=== PATIENT | female | born 1990 | race Caucasian/White ===

== ENCOUNTER 2023-07-21 19:34 | Outpatient (REF) | payer OTHER, SELFPAY ==
[2023-07-27 22:07] LABS: Age Gdln ACOG Testing Note (.); HPV Aptima Positive (Negative); HPV Genotype 16 Positive (Negative); HPV Genotype 18,45 Negative (Negative); IGP, Aptima HPV, rfx 16/18,45 Note (.)
== END 2023-07-21 19:35 | disposition home or self-care (01) ==
LOC: LAB 19:34
PROVIDERS: Visit Provider Physician Assistant
DX: Z01.419 Encounter for gynecological examination (general) (routine) without abnormal findings (principal)
CPT/HCPCS: 87624; 87625; G0145

== ENCOUNTER 2025-03-17 10:03 | Outpatient (OUT) | payer BC, SELFPAY ==
--- OUTSIDE RECORDS SUMMARY | 2024-08-07 13:40 | XMS_ITS | Encounter Summary ---
Author Organization [facility] Address [address] [place] [address] Care Team Providers Care Paramedic Rn Name Role Phone Unavailable Primary Care Provider Unavailabl e Reason for Visit * Reason Comments Well Women Visit Weight Management Encounter Details Date Type Department Care Team (Late st Contact Info) Description 08/07/2024 1:40 PM EDT Office Visit [facility] [address] [place] [place] [address] Israel Gay, DO [address] [facility] [address] Darren Palacios, [facility]11 Encounter for weight management Social History Tobacco Use Types Packs/Day Years Used Date Smoking Tobacco: Never Assessed Comments No Sex and Gender Information Value Date Recorded Sex Assigned at Not on file Legal Sex Female 10:16 AM EDT Gender Identity Female 07/21/2023 9:27 AM EDT Sexual Orientation Not on file documented as of this encounter Last Filed Vital Signs Vital Sign Reading Time Taken Comments Blood Pressure 118/74 08/07/2024 1:44 PM EDT Pulse - - Temperature - - Respiratory Rate - - Oxygen Saturation - - Inhaled Oxygen Concentration - - Weight 98.3 kg (216 lb 12.8 oz) 08/07/2024 1:44 PM EDT Height - - Body Mass Index 33.96 02/14/2024 1:24 PM EDT documented in this encounter Progress Notes * Aleida Rivera LPN - 08/07/2024 1:40 PM EDT Reason for Appointment: Patient ID: Marie Santa is a 33 y.o. female who presents for Well Women Visit and Weight Management Patient presents today for Annual Exam. MEDICATIONS Current Outpatient Medications Medication Instructions Levonorgestrel (Mirena, 52 MG,) 20 MCG/DAY intrauterine device Intrauterine metFORMIN (GLUCOPHAGE) 500 mg, Oral, Daily with breakfast phentermine (ADIPEX-P) 37.5 mg, Oral, Daily before breakfast phentermine (ADIPEX-P) 37.5 mg, Oral, Daily before breakfast ALLERGIES No Known Allergies PROBLEMS Active Ambulatory Problems Diagnosis Date Noted No Active Ambulatory Problems Resolved Ambulatory Problems Diagnosis Date Noted No Resolved Ambulatory Problems No Additional Past Medical History HISTORY PAST MEDICAL HISTORY SOCIAL HISTORY History reviewed. No pertinent past medical history. Social History Tobacco Use Smoking status: Not on file Smokeless tobacco: Not on file Substance Use Topics Alcohol use: Not on file Drug use: Not on file FAMILY HISTORY No family history on file. SURGICAL HISTORY History reviewed. No pertinent surgical history. REVIEW OF SYSTEMS Review of Systems: Review of Systems All other systems reviewed and are negative. OBJECTIVE Objective: Physical Exam Constitutional: Appearance: Normal appearance. She is well-developed. Genitourinary: Vulva normal. Breasts: Breasts are soft. Right: Normal. Left: Normal. Cardiovascular: Rate and Rhythm: Normal rate and regular rhythm. Pulmonary: Effort: Pulmonary effort is normal. Breath sounds: Normal breath sounds. Abdominal: General: Bowel sounds are normal. There is no distension. Palpations: Abdomen is soft. Tenderness: There is no abdominal tenderness. There is no guarding or rebound. Musculoskeletal: General: No swelling. Normal range of motion. Right lower leg: No edema. Left lower leg: No edema. Neurological: Mental Status: She is alert and oriented to person, place, and time. Skin: General: Skin is warm and dry. Psychiatric: Mood and Affect: Mood normal. Behavior: Behavior normal. Vitals and nursing note reviewed. Exam conducted with a air control electronics operator present. Vitals: Estimated body mass index is 33.96 kg/m?? as calculated from the following: Height as of 02/14/24: 5' 7 . Weight as of this encounter: 216 lb 12.8 oz. BP: 118/74 No LMP recorded. ASSESSMENT & PLAN ICD-10-CM 1. Well woman exam with routine gynecological exam Z01.419 Pap Smear HPV DNA probe, amplified 2. Encounter for weight management Z76.89 phentermine (Adipex-P) 37.5 MG tablet Annual Exam: Patient presents today for an annual exam. Patient states she is doing well and has no complaints. Pap was not obtained and patient desires to reschedule annual appointment. Patient also given Adipex#4 given to patient. Orders Placed This Encounter Procedures HPV DNA probe, amplified Follow Up: Patient is to return for annual unless needed otherwise. Documented by Aleida Rivera LPN on behalf of: Israel Gay DO documented in this encounter Plan of Treatment Not on file documented as of this encounter Visit Diagnoses Diagnosis Encounter for weight management documented in this encounter
--- OUTSIDE RECORDS SUMMARY | 2025-03-14 09:30 | XMS_ITS ---
Author Organization [facility] [place] Address [address] [place] [address] Care Team Providers Care Roll Slicing Machine Tender Name Role Phone Jack Patterson Primary Care Provider Allergies No Known Allergies REASON FOR VISIT Fatigue, Painful Acne, Libido Low, Mood Swings, Headaches Medications Medication SIG (Take, Route, Frequency, Duration) Notes Start Date End Date Status Doxycycline Monohydrate 100 MG 1 capsule Orally bid for 10 days 03/14/2025 Active Social History Tobacco Use: Social History Observation Description Date Details (start date - stop date) Former Smoker 10/18/2005 - 08/19/2022 Tobacco Control (Standard) Question Answer Notes Tobacco use: Former smoker When did you start smoking? 10/18/2005 When did you stop smoking? 08/19/2022 How long has it been since y ou last smoked? 1-5 years Additional Findings: Tobacco non-user Ex -moderate cigarette smoker (10-19/day) AUDIT-C (Standard) Question Answer Notes Did you have a drink containing alcohol in the p ast year? No Points 0 Interpretation Negative Problems Problem Type SNOMED Code ICD Code Onset Dates Problem Status W/U Status Risk Notes Problem Acne (L70.9) Active confirmed Problem Constipation (12481199) Constipation (K59.00) Active confirmed Problem Fatigue (37857324) Fatigue (R53.83) Active confirmed Vital Signs Blood pressure systolic 132 mm Hg 03/14/20 25 Blood pressure diastolic 82 mm Hg 025 Height 66 in 03/14/2025 Weight 248 lbs 03/14/2025 BMI 40.02 kg/m2 03/14/2025 Encounters Encounter Location Date Provider Diagnosis [facility] [address] [place] [address] 03/14/2025 Jack Patterson Acne L70.9 ; Fatigue R53.83 and Constipation K59.00 Assessments Encounter Date Diagnosis (ICD Code) Assessment Notes Treatment Notes Treatment Clinical Notes Section Notes 03/14/2025 Acne (ICD-10 - L70.9) 03/14/2025 Fatigue (ICD-10 - R53.83) 03/14/2025 Constipation (ICD-10 - K59.00) Plan Of Treatment Medication Medication Name Sig Start Date Stop Date Notes Doxycycline Monohydrate 100 MG 1 capsule Orally bid for 10 days 03/14/2025 Pending Test Test Name Order Date HEMOGLOBIN A1C (GLYCO) 03/14/2025 LIPID PANEL (CHOL/TRIG/HDL/LDL) 03/14/20 25 Insulin Level 03/14/2025 FSH - PROLACTIN 03/14/2025 ESTRADIOL 03/14/2025 PROGESTERONE 03/14/2025 THYROID PANEL (T4/TSH/FREE T3) CMP (COMP MET AGGARWAL) w/eGFR CKD-EPI 2024 CBC WITH DIFF 03/14/2025 Progress Notes * Celi GRADY CDOB:[birth year] (34 yo F)Acc No.[id number]:03/14/2025 Progress Note Patient: Celi DÍAZ Provider: Ese Patterson ([facility])MD :1990 A ge:34 Y S ex:Female Date:03/14/2025 Address:[address] [place], [place] [id number] Check In:01:19 PM ESTCheck O ut:02:02 PM EST Subjective: * Chief Complaints: * F atigue, Painful Acne, Libido Low, Mood Swings, Headaches * HPI: G eneral: more mood swings since change in the yesi more acne lately' some abd pain trouble with constipation -. * ROS: E ENT: hearing changes d enies. v isual changes d enies.?non-healing mouth sores d enies. s wollen glands or neck lumps d enies. h oarseness d enies. s ore throat d enies. d ifficulty swallowing d enies. n ose bleeds d enies. n keshawn congestion d enies. e ar ache d enies. e ar discharge?denies. r inging in ears d enies. l ight sensitivity d enies. e ye pain d enies. b lurring d enies. e ye irritation d enies. d ouble vision d enies.?vision loss d enies. G eneral/Constitutional: Sweats: D enies. F atigue d enies. S leep problems d enies. A norexia d enies. M alaise d enies. W eight loss d enies.?Fatigue or Weakness d enies. F ever or Chills d enies. C ardiovascular: Shortness of Breath w/lying flat d enies. L ightheadedness/dizziness d enies. C hest tightness/ heavy pressure d enies. S welling of legs, ankles, or feet d enies. W aking up with shortness of breath d enies. C hest pain denies. P alpitations d enies. W eight gain d enies. R espiratory: Chronic or frequent cough d enies. C oughing up blood?denies. D ifficulty breathing d enies. P roductive cough d enies. S noring?denies. S hortness of breath that awakens from sleep (PND) d enies. C hest pain d enies. S putum production d enies. W heezing d enies. M usculoskeletal: Joint pain d enies. J oint Fluid d enies. B ack pain d enies. K nee pain d enies. N chidi pain d enies. J oint Stiffness d enies. M uscle cramps d enies. W eakness of muscles d enies. A rthritis d enies. M uscle aches d enies. P ain in shoulder(s) d enies. S wollen joints d enies. * Active Problem List Z00.00 Well adult Modified On:09/07/2024W/U Status:confirmed R53.83 Fatigue Modified On:03/14/2025W/U Status:confirmed K59.00 Constipation Modified On:03/14/2025/U Status:confirmed L70.9 Acne Modified On:03/14/2025/U Status:confirmed * Medical History: * Surgical History: Ese arguelles Past Surgical History * Hospitalization/Major Diagno stic Procedure: C hild * Family History: F ather: alive. M other: alive, Stroke. B rother(s): alive. S ister(s): alive.?Son(s): alive, Jose D Syndrome, [place] galactosemia. D aughter(s): alive. 3 brother(s) , 1 sister(s) - healthy. 2 son(s) , 1 daughter(s) . . * Social History: T obacco Use: T obacco Control (Standard) T obacco use: F ormer smoker W hen did you start smoking? 0 10/18/2005 W hen did you stop smoking? 1 10/19/2021 H ow long has it been since you last smoked??1-5 years A dditional Findings: Tobacco non-user E x-moderate cigarette smoker (10-19/day) Electronic Cigarette use C urrent user Y es D rug/Alcohol: A CHETAN-C (Standard) D id you have a drink containing alcohol in the past year? N o P oints 0 I nterpretation N egative * Medications: D iscontinuedAdipex-P(Phentermine HCl) 37.5 MG Tablet 1 tablet before breakfast Orally Once a day metFORMIN HCl 500 MG Tablet 1 tablet with a meal Orally Once a day Medication List reviewed and reconciled with the patientDiscontinued Adipex-P(Phentermine HCl) 37.5 MG Tablet 1 tablet before breakfast Orally Once a day Discontinued metFORMIN HCl 500 MG Tablet 1 tablet with a meal Orally Once a day Medication List reviewed and reconciled with the patient * Allergies: N .K.D.A.no[Allergies Verified] Objective: * Vitals: W t:248lbs, Ht: 66 in, BP:132/82mm Hg, BMI:40.02Index, Ht-cm: 167.64 cm, Wt-k.49 kg. * Examination: P hysical Exam: GENERAL: w ell developed, well nourished, in no acute distress. HEAD: n ormocephalic/atraumatic. EYES: p upils equal, round and reactive to light, conjunctivae and sclerae normal. EARS: n o deformity or lesion of external ear, canals and TM appear normal bilaterally, TM's intact, not inflamed with normal light reflex, hearing grossly normal to conversational speech. NOSE: n o deformity, discharge, inflammation, or lesions.? MOUTH: m ucous membranes moist, normal oropharynx and posterior pharynx without lesions or exudates, tongue normal, dentition normal. NECK: n chidi supple, no masses or palpable cervical nodes, trachea midline, thyroid without nodules, masses, tenderness, or enlargement. CHEST: n o chest wall deformity, no chest wall tenderness.? LUNGS: n ormal respiratory effort and clear to auscultation, no wheezes, rales, or rhonchi, good air exchange. CARDIO: r egular rate and rhythm, normal S1 and S2, nor murmur, rub, or gallop. PULSES: n ormal capillary refill. ABDOMEN: s oft, non-distended, non-tender, no masses. MUSCULOSKELETAL: n o deformity or scoliosis noted, normal range of motion, joints normal, no erythema, edema, effusion, or ecchymosis. EXTREMITY: n o clubbing, cyanosis, edema, or deformity with normal ROM in both upper and lower bilateral extremities. NEUROLOGIC: g rossly normal. SKIN: n o rashes, ulcerations, or suspicious lesions. LYMPH NODES: n o cervical adenopathy, nodes normal. MENTAL STATUS: a lert and oriented x3, normal mood and affect. Assessment: * Assessment: 1. A cne - L70.9 (Primary) 2 . F atigue - R53.83 3 . C onstipation - K59.00 Plan: * Treatment: 2. F atigue L AB: HEMOGLOBIN A1C (GLYCO) L AB: LIPID PANEL (CHOL/TRIG/HDL/LDL) L AB: Insulin Level L AB: FSH - PROLACTIN L AB: ESTRADIOL L AB: PROGESTERONE L AB: THYROID PANEL (T4/TSH/FREE T3) L AB: CMP (COMP MET AGGARWAL) w/eGFR CKD-EPI L AB: CBC WITH DIFF 3. C onstipation L AB: HEMOGLOBIN A1C (GLYCO) L AB: LIPID PANEL (CHOL/TRIG/HDL/LDL) L AB: Insulin Level L AB: FSH - PROLACTIN L AB: ESTRADIOL L AB: PROGESTERONE L AB: THYROID PANEL (T4/TSH/FREE T3) L AB: CMP (COMP MET AGGARWAL) w/eGFR CKD-EPI L AB: CBC WITH DIFF * Procedure Codes: * * Sign off status: Completed Visit Status: C HK (Check Out) true * Provider: Ese Patterson ([facility])MD Date: 0 03/14/2025 Generated for Printi ng/Faxing/eTransmitting on: 0 03/17/2025 10:10 AM EDT History and Physical Notes * HPI (History of Present Illness) Category Sub-Category Detail Notes Category Not es General more mood swings since change in the yesi more acne lately' some abd pain trouble with constipation - Examination Category Sub-Category Detail Notes Category Not es Physical Exam GENERAL: well developed, well nourished, in no acute distress HEAD: normocephalic/atraum atic EYES: pupils equal, round and reactive to light, conjunctivae and sclerae normal EARS: no deformity or lesi on of external ear, canals and TM appear normal bilaterally, TM's intact, not inflamed with normal light reflex, hearing grossly normal to conversational speech NOSE: no deformity, discha rge, inflammation, or lesions MOUTH: mucous membranes nam st, normal oropharynx and posterior pharynx without lesions or exudates, tongue normal, dentition normal NECK: neck supple, no mass es or palpable cervical nodes, trachea midline, thyroid without nodules, masses, tenderness, or enlargement CHEST: no chest wall deform ity, no chest wall tenderness LUNGS: normal respiratory e ffort and clear to auscultation, no wheezes, rales, or rhonchi, good air exchange CARDIO: regular rate and rhy thm, normal S1 and S2, nor murmur, rub, or gallop PULSES: normal capillary ref ill ABDOMEN: soft, non-distended, non-tender, no masses RECTAL: MUSCULOSKELETAL: no deformity or scol iosis noted, normal range of motion, joints normal, no erythema, edema, effusion, or ecchymosis EXTREMITY: no clubbing, cyanosi s, edema, or deformity with normal ROM in both upper and lower bilateral extremities NEUROLOGIC: grossly normal SKIN: no rashes, ulceratio ns, or suspicious lesions LYMPH NODES: no cervical adenopat hy, nodes normal MENTAL STATUS: alert and oriented x 3, normal mood and affect
--- OUTSIDE RECORDS SUMMARY | 2025-03-17 10:10 | XMS_ITS | Encounter Summary ---
Author Organization [facility] Address [address] [place] [address] Care Team Providers Care Hematology Nurse Educator Name Role Phone Unavailable Primary Care Provider Unavailabl e Encounter Details Date Type Department Care Team ([facility] Contact Info) Description 06/06/2024 Abstract [facility] [address] [place] [id number] Israel Gay, DO [address] [facility] [address] Darren a[place]acios, [place] [address] Social History Tobacco Use Types Packs/Day Years Used Date Smoking Tobacco: Never Assessed Comments No Sex and Gender Information Value Date Recorded Sex Assigned at Not on file Legal Sex Female 10:16 AM EDT Gender Identity Female 07/21/2023 9:27 AM EDT Sexual Orientation Not on file documented as of this encounter Plan of Treatment Not on file documented as of this encounter Visit Diagnoses Not on filedocumented in this encounter
--- OUTSIDE RECORDS SUMMARY | 2025-03-17 10:10 | XMS_ITS | Clinical Summary ---
Author Organization [facility] tem Address [id number] [address] [place] [address] Care Team Providers Care Standard Machine Stitcher Name Role Phone Tyron Rogers DO Primary Care Provider [phone] Allergies No known active allergies Medications levonorgestrel (MIRENA) 20 mcg/24 hr (5 years) IUD 1 each by intrauterine route once. Active Active Problems Problem Noted Date Diagnosed Date Obesity (BMI 30-39.9) 02/09/2017 History of abnormal cervical Pap smear 7 Overview (02/09/2017): Repeat pap Resolved Problems Problem Noted Date Diagnosed Date Resolved Date 03/12/2017 01/12/2019 Maternal tobacco use in third trimester 02/24/2017 01/12/2019 Back pain affecting pregnanc y in third trimester 02/09/2017 01/12/2019 Family History Medical History Relation Name Comments Jose D syndrome Child 1 Relation Name Status Comments Child 1 Child 2 Glactoceima Social History Tobacco Use Types Packs/Day Years Used Date Smoking Tobacco: Every Day Cigarettes 0.5 15.4 Started: 10/18/2009 Smokeless Tobacco: Never Alcohol Use Standard Drinks/Week Comments Not Currently 0 (1 standard drink = 0.6 oz pur e alcohol) Childcare Answer Date Recorded Childcare Unknown 03/29/2019 Employment Answer Date Recorded Employment Unknown 03/29/2019 Purpose - Life Answer Date Recorded Purpose and direction in life Unknown Comments No Sex and Gender Information Value Date Recorded Sex Assigned at Not on file Legal Sex Female 11:45 AM EDT Gender Identity Not on file Sexual Orientation Not on file Last Filed Vital Signs Vital Sign Reading Time Taken Comments Blood Pressure 128/81 05/23/2021 4:54 AM EDT Pulse 104 05/23/2021 4:54 AM EDT Temperature 37.2 C (98.9 F) 05/23/2021 4:54 AM EDT Respiratory Rate 20 05/23/2021 4:54 AM EDT Oxygen Saturation 100% 05/23/2021 4:54 AM EDT Inhaled Oxygen Concentration - - Weight 98.4 kg (217 lb) 05/23/2021 4:54 AM EDT Height 167.6 cm (5' 6 ) 05/23/2021 4:54 AM EDT Body Mass Index 35.02 05/23/2021 4:54 AM EDT Plan of Treatment Health Maintenance Due Date Last Done Comments Depression Screening 2003 Tobacco Screening 2003 Adult BMI Screening 2009 DTaP,Tdap and Td Vaccines (1 - Tdap) 2010 Influenza Vaccine 06/18/2025 Pap Smear 07/21/2026 07/21/2023, 11/19, 12/15/2018 Medical Devices Not on file Procedures Procedure Name Priority Date/Time Associated Diagnosis Comments HIGH RISK HPV W/ABDULLAHI Routine 12/15/2018 10:29 AM EST HSIL (high grade squamous intraepithelial lesion) on Pap smear of cervix from Last 3 Months or Most Recently Relevant to Health Maintenance Results * (ABNORMAL) High Risk HPV w/Abdullahi (12/15/2018 10:29 AM EST) Hpv specimen type ThinPrep 12/23/2018 10:29 AM EST [facility] Hpv 16 Positive(A) Negative 12/24/2018 2:31 PM EST [facility] Hpv 18 Negative Negative 12/24/2018 2:31 PM EST [facility] Other high risk hpv Negative Negative 12/24/2018 2:31 PM EST [facility] Comment: HPV types 31,33,35,39,45,52,56,58,59,66 and 68 DNA were undetectable. 12/15/2018 10:2 9 AM EST 12/23/2018 10:29 AM EST us Gillian [facility] BLOOD ORDERABLES Fi nal Result [facility] [address] [place] [address], [place] [facility] from Last 3 Months or Most Recently Relevant to Health Maintenance Insurance [facility] Care Teams Standard Machine Stitcher Relationship Specialty Start Date End Date Tyron Rogers DO PCP - General 04/19/17
--- OUTSIDE RECORDS SUMMARY | 2025-03-17 10:10 | XMS_ITS | Patient Health Record ---
Author Organization [facility] in [place] Address [address] [place] [address] Care Team Providers Care Customer Complaint Clerk Name Role Phone Jack Patterson Primary Care Provider [phone] Allergies No Known Allergies Reason For Referral No Information Medications Medication SIG (Take, Route, Frequency, Duration) Notes Start Date End Date Status Doxycycline Monohydrate 100 MG 1 capsule Orally bid for 10 days 03/14/2025 Active Immunizations Vaccine Route Administration Date Status Comme nts DTaP Unknown 03/04/1992 Pending 04 Mar 1992 DTaP Unknown 05/06/1992 Pending 06 May 1992 DTaP Unknown 07/15/1992 Pending 15 Jul 1992 DTaP Unknown 08/11/1993 Pending 11 Aug 1993 DTaP Unknown 09/25/1993 Pending 25 Sep 1993 DTaP Unknown 11/26/2003 Pending 26 Nov 2003 Hep B, Adult, 3 Dose Unknown 06/22/1995 Pending 05 S ep 1994 Hep B, Adult, 3 Dose Unknown 09/25/1996 Pending 09 D ec 1995 Hep B, Adult, 3 Dose Unknown 01/25/1997 Pending 10 A pr 1996 HIB, 4 dose schedule Unknown 03/04/1992 Pending 18 M ay 1991 HIB, 4 dose schedule Unknown 05/06/1992 Pending 20 J ul 1991 HIB, 4 dose schedule Unknown 07/15/1992 Pending 28 S ep 1991 HIB, 4 dose schedule Unknown 05/05/1993 Pending 19 J ul 1992 MMR Unknown 05/05/1993 Pending 05 May 1993 MMR Unknown 09/25/1996 Pending 25 Sep 1996 Polio Virus, IPV Unknown 03/04/1992 Pending 04 March 1 992 Polio Virus, IPV Unknown 05/06/1992 Pending Apr 17 992 Polio Virus, IPV Unknown 08/11/1993 Pending Jul 18 993 Polio Virus, IPV Unknown 09/25/1996 Pending Sep 17 996 Social History Tobacco Use: Social History Observation [...] Problem Status W/U Status Risk Notes Problem Fatigue (04514021) Fatigue (R53.83) Active confirmed Problem Acne (L70.9) Active confirmed Problem Constipation (92939427) Constipation (K59.00) Active confirmed Problem Well adult (934360507) Well adult (Z00.00) Active confirmed Vital Signs Blood pressure diastolic 82 mm Hg 03/14/2025 Height 66 in 03/14/2025 Blood pressure systolic 132 mm Hg 03/14/2025 Weight 248 lbs 03/14/2025 BMI 40.02 kg/m2 03/14/2025 Encounters Encounter Location Date Provider Diagnosis [facility] [address] [place] [address] 03/14/2025 Jack Hoy Acne L70.9 ; Fatigue R53.83 and Constipation K59.00 [facility] [address] [place] [address] 09/07/2024 Jack Hoy Well adult Z00.00 Assessments Encounter Date Diagnosis (ICD Code) Assessment Notes Treatment Notes Treatment Clinical Notes Section Notes 09/07/2024 Well adult (ICD-10 - Z00.00) 03/14/2025 Acne (ICD-10 - L70.9) 03/14/2025 Fatigue (ICD-10 - R53.83) 03/14/2025 Constipation (ICD-10 - K59.00) Plan Of Treatment Pending Test Test Name Order Date CMP (COMPLETE METABOLIC PANEL) 4 HEMOGLOBIN A1C (GLYCO) 03/14/2025 HEMOGLOBIN A1C (GLYCO) 09/07/2024 LIPID PANEL (CHOL/TRIG/HDL/LDL) 03/14/20 25 LIPID PANEL (CHOL/TRIG/HDL/LDL) 09/07/20 24 CBC WITH DIFF 09/07/2024 Insulin Level 09/07/2024 Insulin Level 03/14/2025 FSH - PROLACTIN 03/14/2025 ESTRADIOL 03/14/2025 PROGESTERONE 03/14/2025 THYROID PANEL (T4/TSH/FREE T3) 5 THYROID PANEL (T4/TSH/FREE T3) 4 CMP (COMP MET AGGARWAL) w/eGFR CKD-EPI 2024 CBC WITH DIFF 03/14/2025 Insurance Providers Payer Name Payer Address Payer Phone Subscriber Number Group Number Insured Name Patient Relationship to Insured Coverage Start Date Coverage End Date JOS [employer]ANDERS [address] [place] [address] [id number] Celi Santa Self - patient is the insured Medical (General) History Hospitalization History Reason Date(Month/Year) Child
--- OUTSIDE RECORDS SUMMARY | 2025-03-17 10:10 | XMS_ITS | Clinical Summary ---
Author Organization [facility] Address [address] [place] [address] Care Team Providers Care Distance Learning Unit Leader Name Role Phone Unavailable Primary Care Provider Unavailabl e Allergies No known active allergies Medications Levonorgestrel (Mirena, 52 MG,) 20 MCG/DAY intrauterine device by Intrauterine route. Active metFORMIN (Glucophage) 500 MG tabletIndication s:Encounter for weight management Take 1 tablet (500 mg) by mouth in the morning. Take with meals. 30 tablet 11 3 Active phentermine (Adipex-P) 37.5 MG tabletIndication s:Encounter for weight management Take 1 tablet (37.5 mg) by mouth in the morning. Take before meals. 90 tablet 4 Active phentermine (Adipex-P) 37.5 MG tabletIndication s:Encounter for weight management Take 1 tablet (37.5 mg) by mouth in the morning. Take before meals. 30 tablet 4 Active Hospital, Clinic, or Other Facility Administered Medication Ordered Dose Route Frequency Start Date End Date Status Levonorgestrel intrauterine device 52 mgIndications:Encounter for removal and reinsertion of intrauterine contraceptive device (IUD) 52 mg IU Continuous 06/06/2024 06/05/2029 Active Immunizations Immunization Administration Dates Next Due DTaP, Unspecified 09/25/1996, 3,07/15/1992,1991,03/04/1992 Hep B, Adolescent or Pediatric 01/25/1997,1995,06/22/1995 HiB, unspecified 05/05/1993, 2,05/06/1992,1991 MMR 09/25/1996,05/05/1993 Polio, Unspecified 09/25/1996, 3,05/06/1992,1991 Td (adult), 5 Lf tetanus tox oid, preservative free, adsorbed 07/15/2013 Tdap 04/27/2012 Tetanus toxoid, adsorbed 11/26/2003 Social History Tobacco Use Types Packs/Day Years Used Date Smoking Tobacco: Never Assessed Comments No Sex and Gender Information Value Date Recorded Sex Assigned at Not on file Legal Sex Female 10:16 AM EDT Gender Identity Female 07/21/2023 9:27 AM EDT Sexual Orientation Not on file Last Filed Vital Signs Vital Sign Reading Time Taken Comments Blood Pressure 118/74 08/07/2024 1:44 PM EDT Pulse 85 10/20/2023 1:21 PM EST Temperature - - Respiratory Rate - - Oxygen Saturation - - Inhaled Oxygen Concentration - - Weight 98.3 kg (216 lb 12.8 oz) 08/07/2024 1:44 PM EDT Height 170.2 cm (5' 7 ) 02/14/2024 1:24 PM EDT Body Mass Index 33.96 02/14/2024 1:24 PM EDT Plan of Treatment Not on file Insurance [facility]
--- OUTSIDE RECORDS SUMMARY | 2025-03-17 10:10 | XMS_ITS | Encounter Summary ---
Author Organization [facility] Address [address] [place] [address] Care Team Providers Care Supervisor Diagnostic Name Role Phone Unavailable Primary Care Provider Unavailabl e Encounter Details Date Type Department Care Team ([facility] Contact Info) Description 07/20/2023 Abstract [facility] [address] [place] [id number] Lily Connell PA [address] [place], [place] [address] Social History Tobacco Use Types Packs/Day Years Used Date Smoking Tobacco: Never Assessed Comments Unknown Sex and Gender Information Value Date Recorded Sex Assigned at Not on file Legal Sex Female 10:16 AM EDT Gender Identity Female 07/21/2023 9:27 AM EDT Sexual Orientation Not on file COVID-19 Exposure Response Date Recorded In the last 10 days, have yo u been in contact with someone who was confirmed or suspected to have Coronavirus/COVID-19? No / Unsure 07/21/2023 9:32 AM EDT documented as of this encounter Plan of Treatment Not on file documented as of this encounter Visit Diagnoses Not on filedocumented in this encounter
[2025-03-17 10:31] LABS: Basophils Percent Auto 0.5 % (0.2-2.0); Eosinophils Absolute Auto 0.2 10^3/uL (0.0-0.7); Hematocrit 43.6 % (36.0-48.0); Hemoglobin 14.6 g/dL (12.0-16.0); Immature Granulocytes Abs Auto 0.03 10^3/uL (0.00-0.03); Immature Granulocytes Pct Auto 0.4 % (0.0-0.5); Lymphocytes Absolute Auto 2.3 10^3/uL (1.2-3.8); Lymphocytes Percent Auto 27.8 % (20.5-60.0); Mean Corpuscular HGB Conc 33.5 g/dL (29.9-35.2); Mean Corpuscular Hemoglobin 28.9 pg (26.7-34.0); Mean Corpuscular Volume 86.3 fL (81.0-99.0); Mean Platelet Volume 11.1 fL (9.5-13.5); Monocytes Absolute Auto 0.4 10^3/uL (0.3-0.8); Monocytes Percent Auto 5.3 % (1.7-12.0); Neutrophils Absolute Auto 5.4 10^3/uL (1.4-6.5); Platelet Count 274 10^3/uL (150-450); Red Blood Count 5.05 10^6/uL (4.20-5.40); Red Cell Distribution Width 12.4 % (11.0-15.0); White Blood Count 8.4 10^3/uL (4.0-11.0)
[2025-03-17 10:38] LABS: Estimated Average Glucose 105 mg/dL; Glycohemoglobin A1C 5.3 % (4.5-6.2)
[2025-03-17 11:21] LABS: Alanine Aminotransferase 33 U/L (14-59); Albumin Globulin Ratio 1.1; Albumin Level 3.7 g/dL (3.4-5.0); Alkaline Phosphatase 104 U/L (46-116); Anion Gap 11.7; Aspartate Amino Transferase 17 U/L (15-37); BUN Creatinine Ratio 22.9; Bilirubin Total 0.3 mg/dL (0.2-1.0); Calcium 11.7 mg/dL (8.5-10.1); Carbon Dioxide 27.4 mmol/L (21.0-32.0); Chloride 107 mmol/L (98-107); Chol HDL Ratio 3.1; Cholesterol 153 mg/dL (<=200); Estimated GFR (African America >60 (>=60 mL/min/1.73m^2); Estimated GFR (Non-African Ame >60 (>=60 mL/min/1.73m^2); Free T3 2.74 pg/mL (2.18-3.98); Globulin 3.4 g/dL; Glucose 98 mg/dL (74-106); HDL Cholesterol 50 mg/dL (40-60); LDL Cholesterol Calculated 96.4 mg/dL; Potassium 4.1 mmol/L (3.5-5.1); Sodium 142 mmol/L (136-145); Thyroid Stimulating Hormone 1.143 uIU/mL (0.358-3.740); Total Protein 7.1 g/dL (6.4-8.2); Triglycerides 33 mg/dL (<=150); VLDL CHOLESTEROL 6.6 mg/dL
[2025-03-18 08:08] LABS: Estradiol 66.6 pg/mL (.); FSH 6.9 mIU/mL (.); Progesterone 0.2 ng/mL (.); Prolactin 16.6 ng/mL (4.8-33.4)
[2025-03-19 11:08] LABS: Insulin 16.1 uIU/mL (2.6-24.9)
== END 2025-03-17 10:04 | disposition home or self-care (01) ==
PROVIDERS: PCP Family Medicine; Visit Provider Family Medicine
DX: L70.9 Acne, unspecified (principal); R53.83 Other fatigue; K59.00 Constipation, unspecified; E78.5 Hyperlipidemia, unspecified; R73.09 Other abnormal glucose; E03.9 Hypothyroidism, unspecified; I10 Essential (primary) hypertension
CPT/HCPCS: 36415; 80053; 80061; 82670; 83001; 83036; 83525; 84144; 84146; 84436; 84443; 84481; 85025